=== PATIENT | female | born 1975 | race Hispanic/Latino ===

== ENCOUNTER 2017-01-08 14:13 | Emergency (ER) | payer OTHER ==
[~2017-01-08] VITALS: Ht 162.6 cm; Wt 85.3 kg
[2017-01-08 14:15] VITALS: BP 153/99
[2017-01-08] MEDS ORDERED: LISI-538 (14:26)
[2017-01-08] MEDS ORDERED: NAPHSOL OU (15:10)
== END 2017-01-08 15:16 | disposition home or self-care (01) ==
LOC: M ED 14:13
DX: H10.45 Other chronic allergic conjunctivitis (principal)

== ENCOUNTER 2017-03-09 17:03 | Emergency (ER) | payer BC, OTHER ==
[~2017-03-09] VITALS: Ht 162.6 cm; Wt 81.8 kg
[~2017-03-09 17:03] MED LIST: LISI-538; NAPHSOL OU
[2017-03-09 20:43] LABS: BASO % 0.4 % (0.0-1.0); EOS # 0.2 K/mm3 (0.0-0.50); EOS % 1.9 % (0.0-3.0); LARGE UNSTAINED CELL # 0.2 K/mm3 (0.0-0.4); LARGE UNSTAINED CELL % 1.7 % (0.0-4.0); LYMPH # 4.2 K/mm3 (1.5-4.5); LYMPH % 31.6 % (24.0-44.0); MEAN CORPUSCULAR HEMOGLOBIN 29.2 pg (27.0-33.0); MEAN CORPUSCULAR HGB CONC 34.3 g/dl (32.0-36.5); MEAN CORPUSCULAR VOLUME 85.2 fl (80.0-96.0); MONO # 0.5 K/mm3 (0.0-0.8); MONO % 4.2 % (0.0-5.0); NEUTROPHILS # 7.6 K/mm3 (1.8-7.7); NEUTROPHILS % 60.2 % (36.0-66.0); PLATELET COUNT, AUTOMATED 169 k/mm3 (150-450); RED CELL DISTRIBUTION WIDTH 13.6 % (11.5-14.5); WHITE BLOOD COUNT 12.5 K/mm3 (4.0-10.0)
[2017-03-09] MEDS ORDERED: MORPHINE 2 MG/ML 1ML SYRINGE IV PRN (21:00)
[2017-03-09 21:10] LABS: ALBUMIN 4.1 GM/DL (3.2-5.2); ALBUMIN/GLOBULIN RATIO 1.17 (1.00-1.93); ALKALINE PHOSPHATASE 68 U/L (45-117); ALT/SGPT 20 U/L (12-78); ANION GAP 6 MEQ/L (8-16); AST/SGOT 14 U/L (15-37); BILIRUBIN,DIRECT 0.1 MG/DL (0.0-0.2); BILIRUBIN,TOTAL 0.4 MG/DL (0.2-1.0); BLOOD UREA NITROGEN 10 MG/DL (7-18); CALCIUM LEVEL 9.1 MG/DL (8.5-10.1); CARBON DIOXIDE LEVEL 27 MEQ/L (21-32); CHLORIDE LEVEL 109 MEQ/L (98-107); CREATININE FOR GFR 0.74 MG/DL (0.55-1.02); GLOMERULAR FILTRATION RATE > 60.0 (>58); GLUCOSE, FASTING 83 MG/DL (70-105); POTASSIUM SERUM 4.2 MEQ/L (3.5-5.1); SODIUM LEVEL 142 MEQ/L (136-145); TOTAL PROTEIN 7.6 GM/DL (6.4-8.2)
[2017-03-09] MEDS ORDERED: ISOVUE-370 76% 100ML VIAL (Q9967) As Ordered ONE (21:53)
[2017-03-09 23:33] VITALS: BP 150/108
--- NOTE | 2017-03-10 08:00 | REP ---
Clinical: Lower abdominal pain. Technique: Axial contrast enhanced images from the lung bases to the pubic symphysis using 100 ml Isovue 370 intravenous contrast material with coronal and sagittal re-formations. Findings: Lung bases are clear. Visualized heart and pericardium normal. Small hiatal hernia. Liver, spleen, pancreas, gallbladder, bilateral adrenal glands and kidneys are normal. The enteric system is without obstruction or acute inflammatory process. Although the appendix is not definitively identified, no stranding or inflammatory changes in the right lower quadrant are appreciated to suggest acute appendicitis. Pelvis demonstrates normal bladder and age-appropriate uterus and adnexa with small involuting ovarian cysts noted. No pelvic fluid or ascites. No free air. No adenopathy. Vasculature appears normal. Surrounding musculoskeletal structures are intact. Impression: 1. No acute abdominopelvic pathology appreciated. 2. No free fluid or adenopathy. 3. No evidence for acute inflammatory process. Signed by Adair Kilpatrick MD 03/10/2017 07:51 A
== END 2017-03-09 23:38 | disposition home or self-care (01) ==
LOC: M ED 17:03
DX: A08.4 Viral intestinal infection, unspecified (principal); I10 Essential (primary) hypertension; Z88.5 Allergy status to narcotic agent; Z88.2 Allergy status to sulfonamides; Z82.49 Family history of ischemic heart disease and other diseases of the circulatory system; Z79.899 Other long term (current) drug therapy
CPT/HCPCS: 74177; 80048; 80076; 81001; 81025; 83690; 85025; 87086; 99284; Q9967

== ENCOUNTER 2017-03-16 05:44 | Emergency (ER) | payer BC, OTHER ==
[~2017-03-16] VITALS: Ht 162.6 cm; Wt 81.8 kg
[2017-03-16 06:04] VITALS: BP 150/104
[2017-03-16] MEDS ORDERED: AUGM875T28 PO (07:10)
== END 2017-03-16 07:57 | disposition home or self-care (01) ==
LOC: M ED 05:44
DX: H66.001 Acute suppurative otitis media without spontaneous rupture of ear drum, right ear (principal); J00 Acute nasopharyngitis [common cold]; I10 Essential (primary) hypertension; Z88.1 Allergy status to other antibiotic agents; Z88.2 Allergy status to sulfonamides; Z88.5 Allergy status to narcotic agent

== ENCOUNTER → 2017-07-13 | Outpatient (REF) | payer OTHER ==
[2017-07-13 21:59] LABS: HEMATOCRIT 41.3 % (36.0-47.0); HEMOGLOBIN 14.1 g/dl (12.0-16.0); MEAN CORPUSCULAR HEMOGLOBIN 28.3 pg (27.0-33.0); MEAN CORPUSCULAR HGB CONC 34.1 g/dl (32.0-36.5); MEAN CORPUSCULAR VOLUME 82.9 fl (80.0-96.0); PLATELET COUNT, AUTOMATED 203 10^3/uL (150-450); RED BLOOD COUNT 4.98 10^6/uL (4.00-5.40); RED CELL DISTRIBUTION WIDTH 14.1 % (11.5-14.5); WHITE BLOOD COUNT 12.6 10^3/uL (4.0-10.0)
[2017-07-13 22:06] LABS: ESTIMATED AVERAGE GLUCOSE 91 MG/DL (60-110); HEMOGLOBIN A1c 4.8 %
[2017-07-13 22:07] LABS: ALBUMIN/GLOBULIN RATIO 1.18 (1.00-1.93); ALKALINE PHOSPHATASE 71 U/L (45-117); ALT/SGPT 27 U/L (12-78); ANION GAP 8 MEQ/L (8-16); AST/SGOT 21 U/L (7-37); BILIRUBIN,TOTAL 0.4 MG/DL (0.2-1.0); BLOOD UREA NITROGEN 9 MG/DL (7-18); CALCIUM LEVEL 9.2 MG/DL (8.5-10.1); CARBON DIOXIDE LEVEL 27 MEQ/L (21-32); CHLORIDE LEVEL 107 MEQ/L (98-107); CHOLESTEROL LEVEL 188 MG/DL (<200); CHOLESTEROL RISK RATIO 3.916 (<5); CREATININE FOR GFR 0.74 MG/DL (0.55-1.02); GLOMERULAR FILTRATION RATE > 60.0 (>58); GLUCOSE, FASTING 81 MG/DL (70-105); HDL CHOLESTEROL 48 MG/DL (>40); LDL CHOLESTEROL 111.6 MG/DL (<100); NON-HDL-C 140 MG/DL; POTASSIUM SERUM 3.6 MEQ/L (3.5-5.1); SODIUM LEVEL 142 MEQ/L (136-145); TOTAL PROTEIN 7.4 GM/DL (6.4-8.2); TRIGLYCERIDES LEVEL 142 MG/DL (<150)
[2017-07-13 22:22] LABS: MALB URINE SIEMENS 18.4 MG/L; MAU/CREAT RATIO 8.7 MCG/MG (0.0-30.0)
== END ==
LOC: M SFHCLERA 16:14
DX: I10 Essential (primary) hypertension (principal); R10.13 Epigastric pain

== ENCOUNTER 2017-11-16 17:04 | Emergency (ER) | payer OTHER ==
[2017-11-16 18:03] LABS: BASO % 0.2 % (0.0-1.0); EOS # 0.1 10^3/uL (0.0-0.50); EOS % 1.5 % (0.0-3.0); HEMATOCRIT 39.6 % (36.0-47.0); HEMOGLOBIN 13.9 g/dl (12.0-15.5); IMMATURE GRANULOCYTE % 0.4 % (0-3.0); LYMPH # 1.2 10^3/uL (1.5-4.5); LYMPH % 21.6 % (24.0-44.0); MEAN CORPUSCULAR HEMOGLOBIN 28.9 pg (27.0-33.0); MEAN CORPUSCULAR HGB CONC 35.1 g/dl (32.0-36.5); MEAN CORPUSCULAR VOLUME 82.3 fl (80.0-96.0); MONO # 0.3 10^3/uL (0.0-0.8); MONO % 5.9 % (0.0-5.0); NEUTROPHILS # 3.8 10^3/uL (1.8-7.7); NEUTROPHILS % 70.4 % (36.0-66.0); PLATELET COUNT, AUTOMATED 179 10^3/uL (150-450); RED BLOOD COUNT 4.81 10^6/uL (4.00-5.40); RED CELL DISTRIBUTION WIDTH 13.7 % (11.5-14.5); WHITE BLOOD COUNT 5.4 10^3/uL (4.0-10.0)
[2017-11-16 18:17] LABS: INR 0.95; PROTHROMBIN TIME 12.8 SECONDS (12.4-14.5)
[2017-11-16 18:18] LABS: PARTIAL THROMBOPLASTIN TIME 32.4 SECONDS (26.8-37.9)
[2017-11-16 18:20] LABS: D-DIMER QUANT 1428.3 ng/ml (<500)
[2017-11-16 18:38] LABS: CONTROL LINE HCG INT CTR LINE PRESENT; HCG, SERUM QUALITATIVE NEGATIVE (NEGATIVE)
[2017-11-16] MEDS ORDERED: ISOVUE-370 76% 100ML VIAL (Q9967) As Ordered (18:40)
[2017-11-16 18:44] LABS: ANION GAP 5 MEQ/L (8-16); BLOOD UREA NITROGEN 8 MG/DL (7-18); CALCIUM LEVEL 8.7 MG/DL (8.5-10.1); CARBON DIOXIDE LEVEL 28 MEQ/L (21-32); CHLORIDE LEVEL 107 MEQ/L (98-107); CPK CREATINE PHOSPHOKINASE 121 U/L (26-192); CREATININE FOR GFR 0.81 MG/DL (0.55-1.30); FREE T4 1.02 NG/DL (0.76-1.46); GLOMERULAR FILTRATION RATE > 60.0 (>58); GLUCOSE, FASTING 94 MG/DL (70-100); SODIUM LEVEL 140 MEQ/L (136-145); TROPONIN I < 0.02 NG/ML (< 0.10)
[2017-11-16 18:50] LABS: CK-MB VALUE MASS < 1.0 NG/ML (<3.6); MB/CK RELATIVE INDEX 0.82 (< OR =4); NT-PRO BNP 87 PG/ML (<125); THYROID STIMULATING HORMONE 0.582 uIU/ML (0.358-3.740)
[2017-11-16] MEDS: LORazepam 2 MG/ML VIAL (J2060) IV (18:57)
[2017-11-16] MEDS: ASPIRIN 81 MG CHEW TABLET PO (20:23)
[2017-11-16] MEDS: AZITHROMYCIN 250 MG TAB PO (20:23)
[2017-11-16 23:26] LABS: CK-MB VALUE MASS < 1.0 NG/ML (<3.6); CPK CREATINE PHOSPHOKINASE 76 U/L (26-192); MB/CK RELATIVE INDEX 1.31 (< OR =4); TROPONIN I < 0.02 NG/ML (< 0.10)
== END 2017-11-17 00:34 | disposition home or self-care (01) ==
LOC: M ED 11-17 00:34
DX: J18.9 Pneumonia, unspecified organism (principal); I10 Essential (primary) hypertension; R51 Headache; M79.662 Pain in left lower leg; Z88.2 Allergy status to sulfonamides; Z88.5 Allergy status to narcotic agent; Z79.899 Other long term (current) drug therapy
CPT/HCPCS: Q9967

== ENCOUNTER → 2018-04-12 | Outpatient (CLI) | payer OTHER | LOC: M RAD 15:57 | DX: Z12.31 Encounter for screening mammogram for malignant neoplasm of breast (principal) | CPT/HCPCS: 77067 ==

== ENCOUNTER 2018-07-25 19:56 | Emergency (ER) | payer MEDICAID ==
[~2018-07-25] VITALS: Ht 157.5 cm; Wt 85.5 kg
[~2018-07-25 19:56] MED LIST changes: +AUGM875T28 PO; +AZIT-12 PO; +CHLO125TA PO
[2018-07-25] MEDS ORDERED: METO1TAB32 (20:07)
[2018-07-25] MEDS ORDERED: ASPIRIN 81 MG CHEW TABLET PO ONE (20:30)
[2018-07-25] MEDS ORDERED: NITROGLYCERIN 0.4 MG SUBL TABLET SL PRN (20:30)
[2018-07-25 20:43] VITALS: BP 182/100
[2018-07-25 20:45] LABS: BASO % 0.2 % (0.0-1.0); EOS # 0.1 10^3/uL (0.0-0.50); EOS % 1.2 % (0.0-3.0); HEMATOCRIT 42.1 % (36.0-47.0); HEMOGLOBIN 14.6 g/dl (12.0-15.5); LYMPH # 3.7 10^3/uL (1.5-4.5); LYMPH % 32.1 % (24.0-44.0); MEAN CORPUSCULAR HEMOGLOBIN 28.7 pg (27.0-33.0); MEAN CORPUSCULAR HGB CONC 34.7 g/dl (32.0-36.5); MEAN CORPUSCULAR VOLUME 82.7 fl (80.0-96.0); MONO # 0.7 10^3/uL (0.0-0.8); NEUTROPHILS # 6.9 10^3/uL (1.8-7.7); NEUTROPHILS % 60.2 % (36.0-66.0); PLATELET COUNT, AUTOMATED 200 10^3/uL (150-450); RED BLOOD COUNT 5.09 10^6/uL (4.00-5.40); WHITE BLOOD COUNT 11.5 10^3/uL (4.0-10.0)
[2018-07-25 21:18] LABS: BLOOD UREA NITROGEN 12 MG/DL (7-18); CALCIUM LEVEL 9.3 MG/DL (8.5-10.1); CARBON DIOXIDE LEVEL 26 MEQ/L (21-32); CHLORIDE LEVEL 106 MEQ/L (98-107); CPK CREATINE PHOSPHOKINASE 82 U/L (26-192); CREATININE FOR GFR 0.84 MG/DL (0.55-1.30); GLOMERULAR FILTRATION RATE > 60.0 (>58); GLUCOSE, FASTING 92 MG/DL (70-100); MB/CK RELATIVE INDEX 1.22 (< OR =4); POTASSIUM SERUM 3.5 MEQ/L (3.5-5.1); SODIUM LEVEL 141 MEQ/L (136-145); TROPONIN I < 0.02 NG/ML (< 0.10)
--- NOTE | 2018-07-25 21:24 | REP ---
Clinical: Acute chest pain . Comparison: 11/16/2017 . Technique: PA and lateral. Findings: The mediastinum and cardiac silhouette are normal. The lung la are clear and without acute consolidation, effusion, or pneumothorax. The skeletal structures are intact and normal. Impression: 1. No acute cardiopulmonary process. Electronically Signed by Adair Kilpatrick MD 07/25/2018 09:16 P
[2018-07-25] MEDS ORDERED: METO1TAB32 PO (22:20)
[2018-07-25] MEDS ORDERED: CHLO125TA PO (22:20)
[2018-07-25 22:30] VITALS: BP 141/89
[2018-07-25] MEDS ORDERED: hydroCHLOROthiazide 12.5 MG CAPSULE PO ONE (22:30)
--- NOTE | 2018-07-27 20:45 | ECGEPIP ---
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
== END 2018-07-25 22:45 | disposition home or self-care (01) ==
LOC: M ED 19:56
DX: I10 Essential (primary) hypertension (principal)

== ENCOUNTER → 2018-08-27 | Outpatient (REF) | payer OTHER, MEDICAID ==
[~2018-08-27] MED LIST changes: +METO1TAB32; +METO1TAB32 PO
[2018-08-27 13:34] LABS: ALBUMIN 3.6 GM/DL (3.2-5.2); ALT/SGPT 22 U/L (12-78); BILIRUBIN,TOTAL 0.6 MG/DL (0.2-1.0); BLOOD UREA NITROGEN 8 MG/DL (7-18); CALCIUM LEVEL 8.5 MG/DL (8.5-10.1); CARBON DIOXIDE LEVEL 23 MEQ/L (21-32); CHLORIDE LEVEL 110 MEQ/L (98-107); CHOLESTEROL LEVEL 156 MG/DL (<200); CHOLESTEROL RISK RATIO 3.627 (<5); CREATININE FOR GFR 0.78 MG/DL (0.55-1.30); GLOMERULAR FILTRATION RATE > 60.0 (>58); GLUCOSE, FASTING 129 MG/DL (70-100); HDL CHOLESTEROL 43 MG/DL (>40); LDL CHOLESTEROL 86 MG/DL (<100); NON-HDL-C 113 MG/DL; POTASSIUM SERUM 3.6 MEQ/L (3.5-5.1); SODIUM LEVEL 143 MEQ/L (136-145); THYROID STIMULATING HORMONE 0.638 uIU/ML (0.358-3.740); TOTAL PROTEIN 6.8 GM/DL (6.4-8.2); TRIGLYCERIDES LEVEL 134 MG/DL (<150)
== END ==
LOC: M LAB REF 12:37
PROVIDERS: ATTEND Family Medicine Addiction Medicine
DX: K50.90 Crohn's disease, unspecified, without complications (principal); I10 Essential (primary) hypertension

== ENCOUNTER → 2018-09-01 | Outpatient (REF) | payer OTHER | LOC: M LAB REF 16:36 | PROVIDERS: ATTEND Physician Assistant | DX: N39.0 Urinary tract infection, site not specified (principal) ==

== ENCOUNTER 2018-09-29 11:47 | Emergency (ER) | payer OTHER ==
[~2018-09-29] VITALS: Ht 162.6 cm; Wt 84.9 kg
[~2018-09-29 11:47] MED LIST changes: -LISI-538; +LISI-538 PO
[2018-09-29] MEDS ORDERED: GI COCKTAIL 50ML BTL(HYOSCYAMINE/MAALOX/LIDOCAINE VISCOUS)(1:3:1) PO ONE (12:45)
[2018-09-29 13:06] LABS: BASO % 0.2 % (0.0-1.0); EOS # 0.1 10^3/uL (0.0-0.50); EOS % 1.3 % (0.0-3.0); HEMATOCRIT 42.9 % (36.0-47.0); HEMOGLOBIN 14.7 g/dl (12.0-15.5); LYMPH # 2.7 10^3/uL (1.5-4.5); LYMPH % 30.3 % (24.0-44.0); MEAN CORPUSCULAR HEMOGLOBIN 28.5 pg (27.0-33.0); MEAN CORPUSCULAR HGB CONC 34.3 g/dl (32.0-36.5); MEAN CORPUSCULAR VOLUME 83.3 fl (80.0-96.0); MONO # 0.6 10^3/uL (0.0-0.8); MONO % 6.1 % (0.0-5.0); NEUTROPHILS # 5.6 10^3/uL (1.8-7.7); NEUTROPHILS % 61.8 % (36.0-66.0); PLATELET COUNT, AUTOMATED 176 10^3/uL (150-450); RED BLOOD COUNT 5.15 10^6/uL (4.00-5.40)
--- NOTE | 2018-09-29 13:15 | REP ---
Acute abdominal series: Three views. History: Abdomen pain. Comparison chest x-ray: July 25, 2018. Findings: Upright chest radiograph is normal. There is no evidence of infiltrate or free subdiaphragmatic air. Heart size is normal. Pulmonary vasculature is not increased. Supine and erect views of the abdomen show a normal bowel gas pattern. Psoas margins and flank stripes are intact. No mass, organomegaly, or pathologic calcification is seen. Impression: Negative radiographs of the abdomen and chest. Electronically Signed by Talon Gusman MD 09/29/2018 01:07 P
[2018-09-29 13:17] LABS: INR 1.01; PROTHROMBIN TIME 13.4 SECONDS (12.1-14.4)
[2018-09-29 13:22] LABS: BILIRUBIN, URINE MANUAL NEGATIVE (NEGATIVE); GLUCOSE, URINE (UA) MANUAL NEGATIVE (NEGATIVE); KETONE, URINE MANUAL NEGATIVE (NEGATIVE); UROBILINOGEN, URINE MANUAL NORMAL (NORMAL)
[2018-09-29 13:26] LABS: ALBUMIN 3.9 GM/DL (3.2-5.2); ALT/SGPT 31 U/L (12-78); AMYLASE 50 U/L (25-115); BILIRUBIN,DIRECT 0.1 MG/DL (0.0-0.2); BILIRUBIN,TOTAL 0.5 MG/DL (0.2-1.0); BLOOD UREA NITROGEN 16 MG/DL (7-18); CALCIUM LEVEL 8.8 MG/DL (8.5-10.1); CARBON DIOXIDE LEVEL 26 MEQ/L (21-32); CHLORIDE LEVEL 109 MEQ/L (98-107); CREATININE FOR GFR 0.76 MG/DL (0.55-1.30); GLOMERULAR FILTRATION RATE > 60.0 (>58); GLUCOSE, FASTING 83 MG/DL (70-100); LIPASE 90 U/L (73-393); POTASSIUM SERUM 3.6 MEQ/L (3.5-5.1); SODIUM LEVEL 141 MEQ/L (136-145); TOTAL PROTEIN 7.3 GM/DL (6.4-8.2)
[2018-09-29 13:31] LABS: INFLUENZA A AMPLIFICATION NEGATIVE (NEGATIVE); INFLUENZA B AMPLIFICATION NEGATIVE (NEGATIVE)
[2018-09-29 13:34] LABS: AMORPHOUS SEDIMENT, URINE MOD AMOUNT (NEGATIVE); BACTERIA, URINE MOD AMOUNT; HYALINE CAST, URINE NONE SEEN /lpf (0-1); RBC, URINE 0-1 /hpf (0-3); SQUAMOUS EPITHELIAL CELL URINE LARGE AMOUNT /hpf (SMALL AMT); TRANSITIONAL EPI CELLS, URINE MOD AMOUNT /hpf
[2018-09-29] MEDS ORDERED: CIPR-249 PO (13:51)
[2018-09-29 14:05] VITALS: BP 196/120
== END 2018-09-29 14:10 | disposition home or self-care (01) ==
LOC: M ED 11:47
DX: N39.0 Urinary tract infection, site not specified (principal); I10 Essential (primary) hypertension; Z79.899 Other long term (current) drug therapy; Z88.5 Allergy status to narcotic agent

== ENCOUNTER 2018-10-25 07:14 | Day surgery (SDC) | payer OTHER ==
[~2018-10-25] VITALS: Ht 162.6 cm; Wt 86.2 kg
[~2018-10-25 07:14] MED LIST changes: +CIPR-249 PO; +NS 1,000 ML IV ONE
[2018-10-25] MEDS ORDERED: PROPOFOL 200 MG/20 ML VIAL As Ordered ONE (08:37)
[2018-10-25] MEDS ORDERED: LIDOCAINE 2% INJ 100 MG/5 ML SDV (FOR ANES.) As Ordered ONE (08:37)
--- NOTE | 2018-10-25 09:19 | ROOR ---
Patient Name: Donovan Cast Procedure Date: 10/25/2018 8:36 AM Date of : 1975 Age: 43 Room: [facility] Gender: Female Note Status: Finalized Procedure: Colonoscopy Indications: Clinically significant diarrhea of unexplained origin, Abnormal CT of the GI tract Providers: Miguel Trevino MD Referring MD: Sanjay LIMON MD Requesting Provider: Medicines: Monitored Anesthesia Care Complications: No immediate complications. Procedure: Pre-Anesthesia Assessment: - Prior to the procedure, a History and Physical was performed, and patient medications and allergies were reviewed. The patient is competent. The risks and benefits of the procedure and the sedation options and risks were discussed with the patient. All questions were answered and informed consent was obtained. Patient identification and proposed procedure were verified by the physician, the nurse and the anesthesiologist in the procedure room. Mental Status Examination: alert and oriented. Airway Examination: normal oropharyngeal airway and neck mobility. Respiratory Examination: clear to auscultation. CV Examination: normal. Prophylactic Antibiotics: The patient does not require prophylactic antibiotics. Prior Anticoagulants: The patient has taken no previous anticoagulant or antiplatelet agents. ASA Grade Assessment: II - A patient with mild systemic disease. After reviewing the risks and benefits, the patient was deemed in satisfactory condition to undergo the procedure. The anesthesia plan was to use monitored anesthesia care (MAC). Immediately prior to administration of medications, the patient was re-assessed for adequacy to receive sedatives. The heart rate, respiratory rate, oxygen saturations, blood pressure, adequacy of pulmonary ventilation, and response to care were monitored throughout the procedure. The physical status of the patient was re-assessed after the procedure. The Colonoscope was introduced through the anus and advanced to the terminal ileum, with identification of the appendiceal orifice and IC valve. The colonoscopy was performed without difficulty. The patient tolerated the procedure well. The quality of the bowel preparation was good. The terminal ileum, ileocecal valve, appendiceal orifice, and rectum were photographed. Scope insertion time was 4 minutes. Scope withdrawal time was 10 minutes. The total duration of the procedure was 15 minutes. Findings: The perianal and digital rectal examinations were normal. The terminal ileum appeared normal. A 4 mm polyp was found in the descending colon. The polyp was sessile. The polyp was removed with a jumbo cold forceps. Resection and retrieval were complete. Verification of patient identification for the specimen was done by the physician and nurse using the patient's name, date and medical record number. Estimated blood loss was minimal. Normal mucosa was found in the entire colon. Biopsies for histology were taken with a cold forceps from the right colon, left colon, transverse colon and rectosigmoid colon for evaluation of microscopic colitis. Non-bleeding external and internal hemorrhoids were found during retroflexion. The hemorrhoids were medium-sized. Impression: - The examined portion of the ileum was normal. - One 4 mm polyp in the descending colon, removed with a jumbo cold forceps. Resected and retrieved. - Normal mucosa in the entire examined colon. Biopsied. - Non-bleeding external and internal hemorrhoids. Recommendation: - Patient has a contact number available for emergencies. The signs and symptoms of potential delayed complications were discussed with the patient. Return to normal activities tomorrow. Written discharge instructions were provided to the patient. - Resume previous diet. - Continue present medications. - Await pathology results. - Repeat colonoscopy in 5-10 years for surveillance based on pathology results. - Return to GI clinic in [facility] (address [address], [address], [place] [address]) in 4 -- 6 weeks. Please call GI clinic @ [phone] for apppointment date and time. - Return to referring physician. Miguel Trevino MD Miguel Trevino MD 10/25/2018 9:19:04 AM Electronically signed by Miguel Trevino MD Number of Addenda: 0 Note Initiated On: 10/25/2018 8:36 AM Estimated Blood Loss: Estimated blood loss was minimal.
[2018-10-25 09:20] VITALS: BP 142/88
== END 2018-10-25 09:42 | disposition home or self-care (01) ==
LOC: M OPP 07:14
PROVIDERS: ATTEND Internal Medicine Gastroenterology
DX: K63.5 Polyp of colon (principal); K64.8 Other hemorrhoids; R19.7 Diarrhea, unspecified; R93.3 Abnormal findings on diagnostic imaging of other parts of digestive tract

== ENCOUNTER → 2018-11-25 | Outpatient (REF) | payer OTHER ==
[~2018-11-25] MED LIST changes: +LISI40TA PO; -NS 1,000 ML IV ONE
[2018-11-25 14:30] LABS: ALBUMIN 3.6 GM/DL (3.2-5.2); ALT/SGPT 19 U/L (12-78); BILIRUBIN,TOTAL 0.9 MG/DL (0.2-1.0); BLOOD UREA NITROGEN 10 MG/DL (7-18); CALCIUM LEVEL 8.6 MG/DL (8.5-10.1); CARBON DIOXIDE LEVEL 25 MEQ/L (21-32); CHLORIDE LEVEL 108 MEQ/L (98-107); CHOLESTEROL LEVEL 150 MG/DL (<200); CHOLESTEROL RISK RATIO 3.658 (<5); CREATININE FOR GFR 0.76 MG/DL (0.55-1.30); GLOMERULAR FILTRATION RATE > 60.0 (>58); GLUCOSE, FASTING 97 MG/DL (70-100); HDL CHOLESTEROL 41 MG/DL (>40); LDL CHOLESTEROL 98 MG/DL (<100); NON-HDL-C 109 MG/DL; POTASSIUM SERUM 3.8 MEQ/L (3.5-5.1); SODIUM LEVEL 142 MEQ/L (136-145); TOTAL PROTEIN 7.2 GM/DL (6.4-8.2); TRIGLYCERIDES LEVEL 55 MG/DL (<150)
[2018-11-25 15:07] LABS: HEMOGLOBIN A1c 4.9 %
== END ==
LOC: M LAB REF 12:31
PROVIDERS: ATTEND Family Medicine Addiction Medicine
DX: I10 Essential (primary) hypertension (principal); R73.01 Impaired fasting glucose

== ENCOUNTER 2018-11-29 18:30 | Emergency (ER) | payer OTHER ==
[~2018-11-29] VITALS: Ht 162.6 cm; Wt 87.4 kg
[~2018-11-29 18:30] MED LIST changes: -LISI40TA PO
[2018-11-29] MEDS ORDERED: NS 1,000 ML IV SCH (19:25)
[2018-11-29] MEDS ORDERED: ASPIRIN 81 MG CHEW TABLET PO ONE (19:30)
[2018-11-29] MEDS ORDERED: METOPROLOL 5 MG/5 ML VIAL IV STA (19:33)
[2018-11-29] MEDS ORDERED: CHLORTHALIDONE 12.5MG PER 1/2 TABLET PO ONE (19:45)
[2018-11-29] MEDS ORDERED: METOPROLOL TART 25 MG TABLET PO ONE (19:45)
[2018-11-29 19:50] LABS: BASO % 0.3 % (0.0-1.0); EOS # 0.2 10^3/uL (0.0-0.50); EOS % 1.7 % (0.0-3.0); HEMATOCRIT 39.1 % (36.0-47.0); HEMOGLOBIN 13.6 g/dl (12.0-15.5); LYMPH # 3.8 10^3/uL (1.5-4.5); LYMPH % 33.3 % (24.0-44.0); MEAN CORPUSCULAR HEMOGLOBIN 28.8 pg (27.0-33.0); MEAN CORPUSCULAR HGB CONC 34.8 g/dl (32.0-36.5); MEAN CORPUSCULAR VOLUME 82.7 fl (80.0-96.0); MONO # 0.5 10^3/uL (0.0-0.8); MONO % 4.8 % (0.0-5.0); NEUTROPHILS # 6.7 10^3/uL (1.8-7.7); NEUTROPHILS % 59.6 % (36.0-66.0); PLATELET COUNT, AUTOMATED 191 10^3/uL (150-450); RED BLOOD COUNT 4.73 10^6/uL (4.00-5.40); WHITE BLOOD COUNT 11.3 10^3/uL (4.0-10.0)
[2018-11-29 20:12] LABS: INR 0.93; PROTHROMBIN TIME 12.6 SECONDS (12.1-14.4)
[2018-11-29 20:13] LABS: PARTIAL THROMBOPLASTIN TIME 32.6 SECONDS (25.4-37.6)
[2018-11-29 20:20] LABS: ALBUMIN 3.8 GM/DL (3.2-5.2); ALT/SGPT 26 U/L (12-78); BILIRUBIN,DIRECT < 0.1 MG/DL (0.0-0.2); BILIRUBIN,TOTAL 0.3 MG/DL (0.2-1.0); BLOOD UREA NITROGEN 17 MG/DL (7-18); CALCIUM LEVEL 9.3 MG/DL (8.5-10.1); CARBON DIOXIDE LEVEL 26 MEQ/L (21-32); CHLORIDE LEVEL 107 MEQ/L (98-107); CPK CREATINE PHOSPHOKINASE 124 U/L (26-192); CREATININE FOR GFR 0.95 MG/DL (0.55-1.30); GLOMERULAR FILTRATION RATE > 60.0 (>58); GLUCOSE, FASTING 97 MG/DL (70-100); MB/CK RELATIVE INDEX 0.89 (< OR =4); POTASSIUM SERUM 4.2 MEQ/L (3.5-5.1); SODIUM LEVEL 141 MEQ/L (136-145); TOTAL PROTEIN 7.2 GM/DL (6.4-8.2); TROPONIN I < 0.02 NG/ML (< 0.10)
[2018-11-29] MEDS ORDERED: LABETALOL HCL 100 MG/20 ML VIAL IV STA (21:24)
--- NOTE | 2018-11-29 21:36 | REPVR ---
EXAM: US Duplex Left Lower Extremity Veins, Limited EXAM DATE/TIME: 11/29/2018 8:17 PM CLINICAL HISTORY: 43 years old, female; Signs and symptoms; Edema, localized; Lower extremity, left; Additional info: Swelling TECHNIQUE: Imaging protocol: Real-time Duplex ultrasound of the Left Lower Extremity with 2-D maddox scale, color Doppler flow and spectral waveform analysis. Limited exam focused on the left lower extremity veins. COMPARISON: US Duplex, Ext,LOWER veins,unilat LEFT 11/16/2017 6:20 PM FINDINGS: Left deep veins: The common femoral, femoral and popliteal veins are patent without thrombus. Normal compressibility, augmentation response and Doppler waveforms. Left superficial veins: Saphenofemoral junction is patent without thrombus. Soft tissues: Unremarkable. IMPRESSION: No evidence of deep vein thrombosis from the left common femoral to the popliteal veins. Electronically signed by: Salbador Sung On 11/29/2018 21:36:06 PM
[2018-11-29 22:00] VITALS: BP 228/114
[2018-11-29] MEDS ORDERED: CHLO125TA PO (22:08)
[2018-11-29] MEDS ORDERED: LISI40TA PO (22:08)
[2018-11-29 22:26] VITALS: BP 189/92
--- NOTE | 2018-11-30 03:51 | REP ---
Clinical: Acute chest pain . Comparison: 07/25/2018 . Technique: PA and lateral. Findings: The mediastinum and cardiac silhouette are normal. The lung la are clear and without acute consolidation, effusion, or pneumothorax. The skeletal structures are intact and normal. Impression: 1. No acute cardiopulmonary process. Electronically Signed by Adair Kilpatrick MD 11/30/2018 03:42 A
--- NOTE | 2018-11-30 08:16 | ECGEPIP ---
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
== END 2018-11-29 22:28 | disposition home or self-care (01) ==
LOC: M ED 18:30
DX: I10 Essential (primary) hypertension (principal); Z72.0 Tobacco use; Z79.899 Other long term (current) drug therapy; Z88.2 Allergy status to sulfonamides; Z88.5 Allergy status to narcotic agent; Z88.6 Allergy status to analgesic agent

== ENCOUNTER 2019-01-26 16:42 | Emergency (ER) | payer OTHER ==
[~2019-01-26] VITALS: Ht 162.6 cm; Wt 86.4 kg
[~2019-01-26 16:42] MED LIST changes: +LISI40TA PO
[2019-01-26] MEDS ORDERED: LISI20TA18 (16:48)
[2019-01-26] MEDS ORDERED: BENZONATATE 100 MG CAP PO ONE (19:00)
--- NOTE | 2019-01-26 19:03 | REP ---
Chest x-ray: Two views. History: Cough . Comparison study: November 29, 2018 . Findings: The lungs are well inflated and free of infiltrate. The pleural angles are sharp. The heart size is normal. Pulmonary vasculature is not increased. No significant bony abnormality is seen. Impression: Negative chest x-ray. Electronically Signed by Talon Gusman MD 01/26/2019 06:54 P
[2019-01-26 19:52] LABS: BASO % 0.2 % (0.0-1.0); EOS # 0.3 10^3/uL (0.0-0.50); EOS % 2.8 % (0.0-3.0); HEMATOCRIT 38.5 % (36.0-47.0); HEMOGLOBIN 13.4 g/dl (12.0-15.5); LYMPH # 2.6 10^3/uL (1.5-4.5); MEAN CORPUSCULAR HEMOGLOBIN 28.4 pg (27.0-33.0); MEAN CORPUSCULAR HGB CONC 34.8 g/dl (32.0-36.5); MEAN CORPUSCULAR VOLUME 81.6 fl (80.0-96.0); MONO # 0.8 10^3/uL (0.0-0.8); MONO % 7.3 % (0.0-5.0); NEUTROPHILS # 7.1 10^3/uL (1.8-7.7); NEUTROPHILS % 65.3 % (36.0-66.0); PLATELET COUNT, AUTOMATED 182 10^3/uL (150-450); RED BLOOD COUNT 4.72 10^6/uL (4.00-5.40); WHITE BLOOD COUNT 10.8 10^3/uL (4.0-10.0)
--- NOTE | 2019-01-26 20:02 | ECGEPIP ---
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
[2019-01-26 20:19] LABS: BLOOD UREA NITROGEN 6 MG/DL (7-18); CALCIUM LEVEL 9.1 MG/DL (8.5-10.1); CARBON DIOXIDE LEVEL 27 MEQ/L (21-32); CHLORIDE LEVEL 109 MEQ/L (98-107); CREATININE FOR GFR 0.79 MG/DL (0.55-1.30); GLOMERULAR FILTRATION RATE > 60.0 (>58); GLUCOSE, FASTING 98 MG/DL (70-100); POTASSIUM SERUM 3.3 MEQ/L (3.5-5.1); SODIUM LEVEL 142 MEQ/L (136-145)
[2019-01-26 20:23] LABS: CK-MB VALUE MASS 1.5 NG/ML (<3.6); CPK CREATINE PHOSPHOKINASE 171 U/L (26-192); MB/CK RELATIVE INDEX 0.88 (< OR =4); TROPONIN I < 0.02 NG/ML (< 0.10)
[2019-01-26] MEDS ORDERED: TESS100C PO (21:45)
[2019-01-26] MEDS ORDERED: POTASSIUM CHLORIDE 10 MEQ SR TABLET PO ONE (21:45)
[2019-01-26 22:09] VITALS: BP 152/88
== END 2019-01-26 22:11 | disposition home or self-care (01) ==
LOC: M ED 16:42
DX: M94.0 Chondrocostal junction syndrome [Tietze] (principal); R07.89 Other chest pain; R05 Cough; I10 Essential (primary) hypertension; R51 Headache; F32.9 Major depressive disorder, single episode, unspecified; Z79.899 Other long term (current) drug therapy; Z88.2 Allergy status to sulfonamides; Z88.6 Allergy status to analgesic agent; Z88.5 Allergy status to narcotic agent